=== PATIENT | female | born 2000 | race Caucasian/White ===

== ENCOUNTER 2023-02-20 13:35 | Emergency (ER) | payer OTHER ==
[~2023-02-20] VITALS: Ht 162.6 cm; Wt 76.4 kg
[2023-02-20] MEDS ORDERED: LIDOCAINE 1%/EPI 1:100,000 inj. 10 ML multi-dose vial IJ ONE (14:05)
[2023-02-20] MEDS ORDERED: TETanus/Pertussis (Acell)/Diphther VAC/PF (Tdap-Adult) 0.5ml syringe IMVAC ONE (14:05)
[2023-02-20 14:53] VITALS: BP 110/68; PULSE 67; RESP 18; TEMP 98.1; O2SAT 98
== END 2023-02-20 17:41 | disposition home or self-care (01) ==
LOC: ER 13:36
DX: S61.411A Laceration without foreign body of right hand, initial encounter (principal); W25.XXXA Contact with sharp glass, initial encounter; Y93.89 Activity, other specified; Y92.89 Other specified places as the place of occurrence of the external cause; Y99.8 Other external cause status
CPT/HCPCS: 12002; 90471; 90715; 99283; A6449

== ENCOUNTER 2023-02-26 08:40 | Emergency (ER) | payer OTHER ==
[~2023-02-26] VITALS: Ht 154.9 cm; Wt 78.0 kg
[2023-02-26 08:43] VITALS: BP 118/75; PULSE 79; RESP 16; TEMP 97.7; O2SAT 98
== END 2023-02-26 09:07 | disposition home or self-care (01) ==
LOC: ER 08:40
DX: S61.411D Laceration without foreign body of right hand, subsequent encounter (principal); Z48.02 Encounter for removal of sutures; W25.XXXD Contact with sharp glass, subsequent encounter
CPT/HCPCS: 99281; A6258

== ENCOUNTER 2024-08-29 12:36 | Emergency (ER) | payer BC, OTHER ==
[~2024-08-29] VITALS: Ht 162.6 cm; Wt 80.4 kg
[2024-08-29 12:38] VITALS: TEMP 98.4
[2024-08-29 13:15] LABS: MEAN PLATELET VOLUME 8.4 FL (7.4-10.4); RED CELL DISTRIBUTION WIDTH 12.3 % (11.5-14.5)
[2024-08-29 13:25] LABS: CREATININE 0.88 MG/DL (0.40-0.90); TOTAL CARBON DIOXIDE 26.7 MMOL/L (24-32); eCRCL 84 ML/MIN; eGFR 78 ML/MIN
[2024-08-29 13:26] LABS: UA COLLECTION TYPE CLN CATCH MIDSTREAM
[2024-08-29 13:28] LABS: CAL OXALATE CRYSTALS 1+ /HPF (NEGATIVE); SQUAMOUS EPITHELIAL CELL,UR MODERATE /LPF (FEW)
[2024-08-29 16:02] VITALS: BP 149/120; PULSE 86; RESP 18; O2SAT 100
--- NOTE | 2024-08-29 16:02 | Physician Documentation ---
History of Present Illness ~ Chief Complaint: Complications Stated Complaint: COMPLICATIONS Time Seen by MD: 16:00 OK to notify your PCP?: Yes Primary Medical Doctor: none Source: patient, RN/MD, RN notes reviewed, old records Mode of Arrival: POV Exam Limitations: no limitations HPI 23 year old female seen in bed 19 presents to the emergency department for complaints of vaginal bleeding. Patient states that she began bleeding this morning after having a positive test on 08/25. She states that her bleeding is associated with cramping. Of note, her last menstrual period was in June, but she cannot recall the date. Patient denies any other associated symptoms at this time. Patient denies any other alleviating or exacerbating factors. Last Menstrual Period: July 13, 2024 Medication Reconciliation Allergies: Coded Allergies: No Known Allergies (Unverified , 02/26/23) Past Medical History Past Medical History: No Pertinent History Last Menstrual Period: July 13, 2024 Lives with: Family Lives In: Home Occupation: employed Review of Systems All Other Systems at this time: Reviewed and Negative ROS As stated above in the HPI, otherwise all systems are reviewed and negative. Physical Exam Physical Exam Vital Signs: RN Vital Signs have been reviewed: Yes, Temperature: 98.4, Heart Rate: 85, Respiratory Rate: 18, BP: 118/87, Pulse Oximetry: 99, Weight: 80.400 Oxygen Flow Rate: 0 Pulse Oximetry Reflects: adequate oxygenation Physical Exam General: The patient is well developed, well nourished, nontoxic appearing and is in no acute distress. Skin: [place], warm and dry with no rashes. HEENT: Head was normocephalic and atraumatic. Eyes - pupils equal, round, hazel ctive to light and accommodation. Extraocular movements were intact. Conjunctivae were nonicteric. Ears - bilateral tympanic membranes were normal. The mouth and oropharynx were clear with moist mucous membranes. There were no pharyngeal exudates or erythema. Neck: Supple and nontender. There was no jugular venous distention, lymphadenopathy, thyromegaly or masses. Chest: Clear to auscultation bilaterally without wheezes, rales or rhonchi. No accessory muscle use. No dullness to percussion. Heart: Rate regular and rhythmic. S1, S2. No murmurs. Palpation of the chest wall was normal. No rubs or thrills. Abdomen: Soft, nontender and nondistended. Positive bowel sounds. No guarding or rebound. No hepatosplenomegaly or palpable masses. Extremities: No cyanosis, clubbing or edema. The patient moves all extremities. Pulses were equal and symmetric. Neurologic: Cranial nerves II-XII were intact. Sensation was intact to light touch throughout. Motor strength was 5/5 in all four extremities. Deep tendon reflexes were intact in both upper and lower extremities. Psychologic: The patient was oriented to person, place and time. The patient demonstrated appropriate judgement and insight. : with mild suprapubic pain. Progress Results/Orders Results/Orders Orders - VLADIMIR BREEN MD Cult Urine + [address] (08/29/24 13:29) Completed Orders - VLADIMIR BREEN MD Cbc/Diff (08/29/24 12:40) Lipase (08/29/24 12:40) CMP (08/29/24 12:40) Hcg Serum Qt (08/29/24 12:40) Ua W/Microscopic, Cult If Ind (08/29/24 12:45) Pt Inr (08/29/24 16:02) PTT (08/29/24 16:02) Type And Screen (08/29/24 16:02) Vital Signs 08/29/24 08/29/24 08/29/24 12:38 15:58 16:02 Temp 98.4 Pulse 85 86 Resp 18 18 18 B/P (MAP) 118/87 149/120 (130) Pulse Ox 99 100 O2 Flow Rate 0 0 Laboratory Tests Test 08/29/24 12:45 08/29/24 12:56 Urine Specimen Description Cln catch midstream Urine Color Red Urine Clarity Cloudy Urine pH Urine Specific [place] Urine Protein Urine Glucose (UA) Urine Ketones Urine Occult Blood Urine Nitrite Urine Bilirubin Urine Urobilinogen Urine Leukocyte Esterase Urine RBC Tntc Urine WBC 50-100 H Urine Squamous Epithelial Cells Moderate Urine Calcium Oxalate Crystals 1+ Urine Bacteria 2+ Urine Culture Indicated Indicated Volume Urine Centrifuged 10 ml Urine Comment See note White Blood Count 10.0 Red Blood Count 4.29 Hemoglobin 13.9 Hematocrit 39.9 Mean Corpuscular Volume 93.1 Mean Corpuscular Hemoglobin 32.3 H Mean Corpuscular Hemoglobin Concent 34.7 Red Cell Distribution Width 12.3 Platelet Count 256 Mean Platelet Volume 8.4 Neutrophils (%) (Auto) 68.9 Lymphocytes (%) (Auto) 25.0 Monocytes (%) (Auto) 4.8 Eosinophils (%) (Auto) 0.7 Basophils (%) (Auto) 0.6 Neutrophils # (Auto) 6.9 Lymphocytes # (Auto) 2.5 Monocytes # (Auto) 0.5 Eosinophils # (Auto) 0.1 Basophils # (Auto) 0.1 CBC Comment Prothrombin Time 10.3 INR International Normalized Ratio 1.0 Activated Partial Thromboplast Time 25 Coagulation Comments Sodium Level 141 Potassium Level 3.9 Chloride Level 107 Carbon Dioxide Level 26.7 Anion Gap 7 L Blood Urea Nitrogen 7 Creatinine 0.88 Estimated GFR/1.73 m2 78 BUN/Creatinine Ratio 8.0 L Glucose Level 109 H Calcium Level 8.4 L Total Bilirubin 0.4 Aspartate Amino Transf (AST/SGOT) 16 Alanine Aminotransferase (ALT/SGPT) 19 Alkaline Phosphatase 54 Total Protein 6.9 Albumin 3.9 Globulin 3.0 Albumin/Globulin Ratio 1.3 Lipase 49 HCG Beta Subunit 15 Chemistry Comments Microbiology Date/Time Source Procedure Growth Status 08/29/24 13:29 Urine Clean Catch Midstream Urine Culture - Preliminary Culture received. Resulted Re-Evaluation Additional Notes Patient was seen and examined. Patient was given reassurance. Patient was found to have an ectopic . Patient is CBC was reassuring no signs of infection no left shift no anemia. Chemistry was also reassuring with normal CO2 BUN creatinine was also within normal limits. LFTs are within normal limits. HCG showed level of 15. Patient's urinalysis showed TNTC four RBCs as well as 50-100 WBCs and moderate squamous epithelial cells most likely secondary to contamination. As well as vaginal bleeding. After the ultrasound showed possible topic consultation with he will be obstetrics Bactrim pain he was consulted. OR crew was called. Ultimately the plan is for re-evaluation in 48 hours retesting they hCG and repeating the ultrasound. If the patient develops any signs of ruptured ectopic which we went over in detail with the patient will return for emergent surgery. Patient is not toxic appearing with family at bedside. Medical Decision Making Additional info obtained from: old records Differential Dx:Considerations: Include: -complete, - incomplete, -inevitable, -missed, -threatened, Cystitis: Acute, Discomfort of , Ectopic , Ectopic preg.-ruptured, demise, UTI, Vaginal bleeding, Other Departure Time of Disposition: 16:57 Disposition: 01 HOME / SELF CARE / HOMELESS Impression: Primary Impression: Miscarriage Additional Impression: Abdominal pain Qualified Codes: R10.30 - Lower abdominal pain, unspecified Condition: Stable Discharge Instructions: Menstruation Additional Instructions: Call Dr. Grewal office [phone] tomorrow and return to the Emergency room for additional testing in two days. Departure Forms: Excuse form Work or School Excused From: Work Excuse beginning now through the following date: Aug 29, 2024 Referrals: NO PRIMARY CARE PROVIDER (PCP) Education Educated: Patient, Family Educated regarding: diagnosis, treatment, prognosis, need for follow up Signature Scribe Signature: Scribed for Vladimir Breen MD by Fay Nicolas . 08/29/24 16:58 Attestation: The note accurately reflects work and decisions made by me.Vladimir Breen MD 08/29/24 16:02 VLADIMIR BREEN MD Aug 29, 2024 16:02 FAY LACEY Aug 29, 2024 17:00
[2024-08-29 16:25] LABS: APTT 25 SECONDS (22-32); INR 1.0 INR
--- NOTE | 2024-08-29 16:29 | RADIOLOGY REPORT ---
EXAM: US US OB HISTORY: Cramping and Spotting TECHNIQUE: Multiple real-time grayscale images of the gravid uterus with duplex Doppler color flow an d M-mode spectral analysis. COMPARISON: None FINDINGS: [place]-rump length measures 0.8 cm, 6 weeks 5 days. heart tones not detected at this time. Uterus measures 8.0 x 4.8 cm Right ovary measures 3.1 and left ovary measures 2.1 cm. No free fluid in the cul-de-sac. No adnexal masses Impression 1. [place]-rump length measures 6 weeks and 5 days. heart tones not detected at this time. Follow -up ultrasound is recommended.
--- NOTE | 2024-08-29 19:11 | CONSULTATION ---
DATE OF CONSULTATION: 08/29/2024 DICTATING PHYSICIAN: Issac Breen MD PHYSICIAN REQUESTING CONSULTATION: Vladimir Breen MD HISTORY OF PRESENT ILLNESS: The patient is a 23-year-old 1, para 0 with an early , who presented to the ER with complaints of vaginal bleeding and cramping pain, which she described as mild. The patient states she believes she is having a miscarriage and was seeking the help. Denied any other significant pain. The patient states she first tested positive on a urine at home approximately 1 week ago. She subsequently tested 2 more times again with positive results. Became concerned when she started bleeding today. PAST MEDICAL HISTORY: Significant for a history of infection with chlamydia, for which she was treated several years ago. PAST SURGICAL HISTORY: None. ALLERGIES: No known drug allergies. SOCIAL HISTORY: The patient is employed and lives at home with her mother. PHYSICAL EXAMINATION: GENERAL: The patient is alert, oriented, and in no acute distress. VITAL SIGNS: Temperature of 98.4, pulse of 85, respiratory rate of 18, blood pressure 118/87, saturating 100% on room air. SIGNIFICANT LABS: Hemoglobin is 13.9, white blood cell count of 10. Chemistry panel is within normal limits. Serum beta hCG of 15. DIAGNOSTIC DATA: Review of the ultrasound images and discussion with the chief ultrasound technologist by me showed no within the uterus. The endometrial stripe is measuring 7 mm. No adnexal masses were noted. However, there is a cystic mass within the cul-de-sac with some questionable debris and measuring approximately 3 cm in greatest diameter. No cardiac flicker was noted. That network support technician measured what she thought might represent a pole of about 6 weeks and 5 days, and 7.7 mm in length. No free fluid was noted. ASSESSMENT: In view of the patient's extremely low beta hCG of 15 with what may be at least a 5-week and her vaginal bleeding, I believe the patient is miscarrying the or has completed the miscarriage. The cystic structure within the cul-de-sac may represent a paratubal cyst. In either case, this does not appear to be a ruptured ectopic at this time. PLAN: I discussed the findings with the patient and her mother, and I recommended followup in 48 hours for a repeat hCG and ultrasound for further evaluation. I also offered the patient a diagnostic laparoscopy, which she declined today, which I did not necessarily recommend due to her lack of pain and uncertain findings on ultrasound today. The plan is to discharge the patient home with followup in the ER in 48 hours. Additionally, I provided the patient with my office number as well as strict ruptured ectopic precautions. Both the patient and her mother agreed with this plan of care and they were comfortable with the followup. Issac Breen MD TID: [id number] RECEIPT: [id number] BETI/FLORI
== END 2024-08-29 17:26 | disposition home or self-care (01) ==
LOC: ER 12:36
DX: O03.9 Complete or unspecified spontaneous abortion without complication (principal); O26.891 Other specified pregnancy related conditions, first trimester; Z3A.01 Less than 8 weeks gestation of pregnancy
CPT/HCPCS: 36415; 76801; 76817; 80053; 81001; 83690; 84702; 85025; 85610; 85730; 86885; 86900; 86901; 87088; 93976; 99284

== ENCOUNTER 2024-08-31 08:26 | Emergency (ER) | payer OTHER, BC ==
[~2024-08-31] VITALS: Ht 162.6 cm; Wt 77.3 kg
[2024-08-31 09:23] LABS: MEAN PLATELET VOLUME 8.3 FL (7.4-10.4); RED CELL DISTRIBUTION WIDTH 12.7 % (11.5-14.5)
[2024-08-31 09:37] LABS: CREATININE 0.85 MG/DL (0.40-0.90); TOTAL CARBON DIOXIDE 28.0 MMOL/L (24-32); eCRCL 87 ML/MIN; eGFR 81 ML/MIN
--- NOTE | 2024-08-31 09:54 | Physician Documentation ---
History of Present Illness ~ Chief Complaint: Abdominal Pain Stated Complaint: RECHECK Time Seen by MD: 09:54 Primary Medical Doctor: none Mode of Arrival: Ambulatory HPI A 23-year-old female who presents to the ER for follow up ultrasound and labs at the request of plate worker helper Dr. Breen. Two days ago, her HCG was 15. And, at that time there was concern for an extra uterine . In addition, patient did reports that she had a black stool. Ultrasound showed a cystic mass in the cul-de-sac at that time. Dr. Breen made note of a possible paratubal cyst. Returns today reporting that she has had some cramping but no significant bleeding. No fevers. Medication Reconciliation Allergies: Coded Allergies: No Known Allergies (Unverified , 02/26/23) Past Medical History Past Medical History: No Pertinent History Lives with: Family Lives In: Home Occupation: employed Review of Systems ROS As stated above in the HPI, otherwise all systems are reviewed and negative. Physical Exam Vital Signs: Temperature: 98.4, Heart Rate: 64, Respiratory Rate: 13, BP: 114/85, Pulse Oximetry: 100, Weight: 77.270 Oxygen Flow Rate: 0 Physical Exam General: Alert, no apparent distress. Neck: Full range of motion. Respiratory: Lungs clear, no respiratory distress. Chest: No accessory muscle use. Cardiovascular: Regular rate and rhythm, no murmurs. Gastrointestinal: Soft, nontender, nondistended. Bowels sounds present. Rectal: No external hemorrhoids. No fissue. No masses in rectal vault. No stool to test for hemoccult. Extremities: Normal range of motion, no deformity. Neurologic: Oriented x4. Psychiatric: Normal mood and affect. Skin: Normal color, warm and dry. No edema, no ecchymosis. Progress Results/Orders Results/Orders Orders - TAWNY MCCORMACK NP Hemocult Set Up (08/31/24 ) Vital Signs 08/31/24 08/31/24 08/31/24 08:42 09:37 09:52 Temp 98.4 Pulse 79 64 Resp 18 13 B/P (MAP) 107/74 114/85 (95) Pulse Ox 100 100 O2 Flow Rate 0 0 Laboratory Tests Test 08/31/24 09:09 White Blood Count 7.7 Red Blood Count 4.57 Hemoglobin 14.7 Hematocrit 42.3 Mean Corpuscular Volume 92.4 Mean Corpuscular Hemoglobin 32.1 H Mean Corpuscular Hemoglobin Concent 34.8 Red Cell Distribution Width 12.7 Platelet Count 247 Mean Platelet Volume 8.3 Neutrophils (%) (Auto) 60.3 Lymphocytes (%) (Auto) 31.4 Monocytes (%) (Auto) 6.0 Eosinophils (%) (Auto) 1.6 Basophils (%) (Auto) 0.7 Neutrophils # (Auto) 4.6 Lymphocytes # (Auto) 2.4 Monocytes # (Auto) 0.5 Eosinophils # (Auto) 0.1 Basophils # (Auto) 0.1 CBC Comment Sodium Level 139 Potassium Level 3.7 Chloride Level 105 Carbon Dioxide Level 28.0 Anion Gap 6 L Blood Urea Nitrogen 6 L Creatinine 0.85 Estimated GFR/1.73 m2 81 BUN/Creatinine Ratio 7.1 L Glucose Level 87 Calcium Level 8.6 Total Bilirubin 0.4 Aspartate Amino Transf (AST/SGOT) 22 Alanine Aminotransferase (ALT/SGPT) 21 Alkaline Phosphatase 60 Total Protein 7.1 Albumin 3.8 Globulin 3.3 Albumin/Globulin Ratio 1.2 HCG Beta Subunit 12 Chemistry Comments EKG/XRAY/CT/US/VASC/MRI Ultrasound : [facility] [address] [place] [id number] ULTRASOUND Patient: CORRY GARCES Medical Record: [id number] [facility] : 2000, Age: 23 Sex: Female Location: ER Patient Status: REG ER Service Date/Time: 08/31/24843 Ordering Physician: AMY ANDREWS MD Exam: US PELVIS/WITH DUPLEX INDICATION: POSSIBLE ECTOPIC /CYST TECHNIQUE: Multiple real-time grayscale transabdominal and transvaginal transvaginal sonographic images along with color and duplex Doppler of the uterus and ovaries were obtained. COMPARISON: 08/29/2024 FINDINGS: The uterus measures 8.5 X 3.9 X 4.9 cm. The endometrial stripe measures 0.3 cm. The right ovary measures 3.5 x 1.7 x 2.1 cm. The left ovary measures 3.2 x 1.8 x 2.3 cm. Stable cystic structure in the cul-de-sac measuring 2.9 cm of indeterminate etiology. Subsequent color and duplex Doppler interrogation of the ovaries demonstrated symmetric vascular flow to both ovaries, though this does not exclude the possibility of torsion due to the dual blood supply. IMPRESSION: Stable cystic structure in the cul-de-sac measuring 2.9 cm of indeterminate etiology. Electronically Signed by:MANFRED HERNANDEZ MD Date & Time: 08/31/241035 Dictated by: MANFRED HERNANDEZ MD Dictation date and time: 08/31/241035 Primary Care Provider: NO PRIMARY CARE PROVIDER cc: AMY ANDREWS MD ~ Medical Decision Making Additional Comment Consultation via phone with plate worker helper Dr. Breen. Discussed with him that hCG today is now 12. Hemoglobin remained stable. Patient denies any significant bleeding. No fevers. Hemoccult attempted, but no stool in vault. No masses, hemorrhoids, fissures. In addition, patient reports that she has now had some yellow stools. Patient is well-appearing and hemodynamically stable. She does have a follow up appointment with Dr. Breen on Wednesday. U.S. repeated, results relayed to Dr. Breen. Departure Time of Disposition: 10:39 Impression: Primary Impression: Miscarriage Condition: Stable Discharge Instructions: Miscarriage Additional Instructions: Keep your appt with Dr. Breen Wednesday. Return if worse: Dizzy, saturating more than a pad an hr with blood, fever over 101 or any other concerns. Referrals: NO PRIMARY CARE PROVIDER (PCP) Education Educated: Patient, Family Educated regarding: diagnosis, treatment, prognosis, need for follow up Signature Scribe Signature: no scribe Attestation: The note accurately reflects work and decisions made by me.Tawny Watson NP 08/31/24 10:56 TAWNY MCCORMACK NP Aug 31, 2024 09:54
--- NOTE | 2024-08-31 10:38 | RADIOLOGY REPORT ---
INDICATION: POSSIBLE ECTOPIC /CYST TECHNIQUE: Multiple real-time grayscale transabdominal and transvaginal transvaginal sonographic imag es along with color and duplex Doppler of the uterus and ovaries were obtained. COMPARISON: 08/29/2024 FINDINGS: The uterus measures 8.5 X 3.9 X 4.9 cm. The endometrial stripe measures 0.3 cm. The right ovary measures 3.5 x 1.7 x 2.1 cm. The left ovary measures 3.2 x 1.8 x 2.3 cm. Stable cystic structure in the cul-de-sac measuring 2.9 cm of indeterminate etiology. Subsequent color and duplex Doppler interrogation of the ovaries demonstrated symmetric vascular flow to both ovaries, though this does not exclude the possibility of torsion due to the dual blood suppl y. IMPRESSION: Stable cystic structure in the cul-de-sac measuring 2.9 cm of indeterminate etiology.
[2024-08-31 11:07] VITALS: BP 129/72; PULSE 73; RESP 10; TEMP 98.4; O2SAT 99
== END 2024-08-31 11:14 | disposition home or self-care (01) ==
LOC: ER 08:27
DX: O03.9 Complete or unspecified spontaneous abortion without complication (principal)
CPT/HCPCS: 36415; 76830; 76856; 80053; 84702; 85025; 93976; 99284